=== PATIENT | male | born 1995 | race Caucasian/White ===

== ENCOUNTER 2018-07-07 14:39 | Emergency (ER) | payer MEDICAID ==
[~2018-07-07] VITALS: Ht 185.4 cm; Wt 77.1 kg
[2018-07-07 14:56] VITALS: BP 117/53
== END 2018-07-07 16:11 | disposition home or self-care (01) ==
LOC: ER 14:39
DX: L02.811 Cutaneous abscess of head [any part, except face] (principal)
CPT/HCPCS: 10060

== ENCOUNTER 2022-02-03 10:42 | Emergency (ER) | payer MEDICAID ==
[~2022-02-03] VITALS: Ht 182.9 cm; Wt 102.5 kg
[2022-02-03 12:36] VITALS: BP 118/58
[2022-02-03] MEDS ORDERED: BENZ1TAB2 PO (12:45)
[2022-02-03] MEDS ORDERED: OLAN20TA PO (12:45)
== END 2022-02-03 13:08 | disposition home or self-care (01) ==
LOC: ER 10:42
DX: F31.9 Bipolar disorder, unspecified (principal); Z76.0 Encounter for issue of repeat prescription

== ENCOUNTER 2023-08-05 08:31 | Emergency (ER) | payer MEDICAID ==
[~2023-08-05] VITALS: Ht 182.9 cm; Wt 100.6 kg
[~2023-08-05 08:31] MED LIST: BENZ1TAB6 PO; OLAN20TA PO
[2023-08-05 09:24] VITALS: BP 131/79; PULSE 96; RESP 16; TEMP 97.8; O2SAT 96
[2023-08-05] MEDS ORDERED: IBUP-1456 PO (09:28)
[2023-08-05] MEDS ORDERED: CEPH500C PO (09:28)
[2023-08-05] MEDS: KETOROLAC TROMETH 60MG/2ML VIAL IM ONE (09:34)
== END 2023-08-05 09:58 | disposition home or self-care (01) ==
LOC: ER 08:31
DX: S90.822A Blister (nonthermal), left foot, initial encounter (principal); L84 Corns and callosities; F17.210 Nicotine dependence, cigarettes, uncomplicated; Z79.899 Other long term (current) drug therapy; X58.XXXA Exposure to other specified factors, initial encounter; Y93.01 Activity, walking, marching and hiking; Y92.89 Other specified places as the place of occurrence of the external cause; Y99.8 Other external cause status
CPT/HCPCS: 96372; 99283; J1885